=== PATIENT | female | born 1950 | race Caucasian/White ===

== ENCOUNTER 2022-11-17 10:51 | Emergency (ER) | payer MEDICARE, OTHER ==
[~2022-11-17] VITALS: Ht 167.6 cm; Wt 51.3 kg
--- OUTSIDE RECORDS SUMMARY | 2022-11-17 13:13 | XMS ---
PreManage Notification: LORENZA POLANCO [employer] Ch[employer] Events No recent Security Events currently on file CRITERIA MET - [facility] - 2 Visits in 30 Days CARE PROVIDERS There are no care providers on record at this time. Trini has no Care Guidelines for this patient. Marisol VISIT COUNT (12 MO.) [address] TOTAL 2 NOTE: Visits indicate total known visits. ED/UCC VISIT TRACKING (12 MO.) [facility] COMPLAINT: - ABD PAIN, UNABLE TO EAT/DRINK, NAUSEA 10/18/2022 01:50 [facility] [place] TYPE: Emergency DIAGNOSES: - Noninfective gastroenteritis and colitis, unspecified - ABD PAIN - Gastritis, unspecified, without bleeding INPATIENT VISIT TRACKING (12 MO.) No inpatient visits to display in this time frame [email or web address]
[2022-11-17] MEDS ORDERED: ONDANSETRON ODT4 MG PO (16:37)
== END 2022-11-17 17:47 | disposition home or self-care (01) ==
LOC: ED 10:51
DX: K52.9 Noninfective gastroenteritis and colitis, unspecified (principal); R42 Dizziness and giddiness; R53.1 Weakness; E03.9 Hypothyroidism, unspecified; K21.9 Gastro-esophageal reflux disease without esophagitis; D64.9 Anemia, unspecified
CPT/HCPCS: 36415; 80053; 81001; 83690; 83735; 84443; 85025; 85651; 96361; 96374; 99284-25; J2405; J7121